=== PATIENT | female | born 1970 | race Hispanic/Latino ===

== ENCOUNTER → 2018-01-21 | Outpatient (CLI) | payer OTHER ==
[~2018-01-21] MED LIST: METFORMIN HCL500 MG PO; TRADJENTA5 MG PO
--- NOTE | 2018-01-21 14:37 | Diagnostic Imaging Report ---
PROCEDURE:US RETROPERITONEAL ( KIDNEY ). COMPARISON:None. INDICATIONS:Microscopic hematuria; urinary tract infection TECHNIQUE: Hamm scale and color Doppler ultrasound kidneys FINDINGS: Right: 12 x 4.5 x 2.8 cm; cortical thickness 1.4 cm. Left: 11 x 6 x 2.8 cm; cortical thickness 1.2 cm. Both kidneys demonstrate normal parenchymal echogenicity. No conspicuous stone, cyst or mass. Mildly prominent left renal pelvis with mild hydronephrosis. Survey views of the urinary bladder are normal. Ureteral patency is documented bilaterally with normal ureteral jets. CONCLUSION: 1. No evidence of kidney or ureteral stone. 2. Mildly prominent left renal pelvis with trace hydronephrosis. Dictated by: Filemon Farrar M.D. on 01/21/2018 at 14:40 Electronically approved by: Filemon Farrar M.D. on 01/21/2018 at 14:40
== END | disposition home or self-care (01) ==
LOC: US 13:28
PROVIDERS: ATTEND Urology
DX: N39.0 Urinary tract infection, site not specified (principal); R31.21 Asymptomatic microscopic hematuria; N13.30 Unspecified hydronephrosis
CPT/HCPCS: 76770

== ENCOUNTER → 2018-05-30 | Outpatient (CLI) | payer OTHER ==
--- NOTE | 2018-05-30 16:23 | Diagnostic Imaging Report ---
EXAM: Renal Ultrasound INDICATION: UTI COMPARISON: Renal ultrasound 01/21/18. TECHNIQUE: Transverse and longitudinal images of the kidneys and bladder were obtained. FINDINGS: Right Kidney: Length: Measures 12.3 cm Appearance: Normal echogenicity. Collecting system: No hydronephrosis Stones: None Cyst/Mass: None Left Kidney: Length: Measures 12.4 cm Appearance: Normal echogenicity. Collecting system: Mildly prominent left renal pelvis with trace hydronephrosis. Stones: None Cyst/Mass: None Bladder: Unremarkable. Bilateral ureteral jets are visualized. IMPRESSION: No evidence of renal or ureteral stone. Similar appearance of mildly prominent left renal pelvis with trace hydronephrosis. Signed by: Dr. Princess Deras MD on 05/30/2018 4:20 PM
== END ==
LOC: US 14:37
PROVIDERS: ATTEND Urology
DX: N39.0 Urinary tract infection, site not specified (principal)
CPT/HCPCS: 76770